=== PATIENT | male | born 1955 | race Caucasian/White ===

== ENCOUNTER 2017-06-03 09:47 | Outpatient (CLI) | payer BC ==
[2013-07-23 03:08] VITALS: BP 185/122
[2017-06-03 10:28] LABS: eGFR (African) > 60; eGFR (Non-African) > 60
== END 2017-06-03 09:50 ==
LOC: LAB 09:47
PROVIDERS: ATTEND Family Medicine
DX: E78.5 Hyperlipidemia, unspecified (principal); I10 Essential (primary) hypertension; Z11.59 Encounter for screening for other viral diseases
CPT/HCPCS: 36415; 80053; 80061; 86803

== ENCOUNTER 2018-06-16 09:04 | Outpatient (CLI) | payer BC ==
[2013-07-23 03:08] VITALS: BP 185/122
[2018-06-16 12:49] LABS: eGFR (Non-African) > 60
== END 2018-06-16 09:06 ==
LOC: LAB 09:04
PROVIDERS: ATTEND Family Medicine
DX: I10 Essential (primary) hypertension (principal); E78.5 Hyperlipidemia, unspecified
CPT/HCPCS: 36415; 80053; 80061